=== PATIENT | male | born 1980 | race Caucasian/White ===

== ENCOUNTER 2016-08-28 17:07 | Emergency (ER) | payer MEDICARE, OTHER ==
[2016-08-28 17:16] VITALS: TEMP 97.1
[2016-08-28] MEDS ORDERED: IBUPROFEN 800 MG TAB PO STA (17:27)
--- NOTE | 2016-08-28 17:49 | XR ---
EXAMINATION TYPE: XR finger LT DATE OF EXAM: 08/28/2016 5:42 PM COMPARISON: NONE HISTORY: Laceration TECHNIQUE: 3 views FINDINGS: I see no fracture nor dislocation. Joint spaces are normal. There is no sign of a foreign b clark. IMPRESSION: Negative left index finger exam.
--- NOTE | 2016-08-28 17:55 | ED ---
Wound/Laceration HPI - General Chief Complaint: Wound/Laceration Stated Complaint: LACERATION ON LEFT INDEX FINGER WITH CUTTING WHEEL Time Seen by Provider: 08/28/16 17:23 Source: patient, RN notes reviewed Mode of arrival: ambulatory Limitations: no limitations - History of Present Illness Initial Comments: 36-year-old male presents to the ER with laceration to his left index finger. States he was using a valve grinder tool when his finger slipped and cut at the knuckle. He has had his tetanus within the last 1-2 years. He states that he did not take anything for pain prior to coming in does state that he is in moderate to severe pain. He states he has no other constitutional symptoms including headache, dizziness, nausea, vomiting, abdominal pain, chest pain or shortness of breath. He states that he did control the bleeding with pressure on his way here. - Related Data Previous Rx's Medication Instructions Recorded Acetaminophen with Codeine 1 each PO Q4H #16 tab 10/29/14 [Tylenol w/codeine #3] Doxycycline Hyclate 100 mg PO BID #14 tab 10/29/14 Cephalexin [Keflex] 500 mg PO Q12HR #14 cap 08/28/16 Allergies Allergy/AdvReac Type Severity Reaction Status Date / Time No Known Allergies Allergy Verified 10/28/14 23:21 Review of Systems ROS Statement: Those systems with pertinent positive or pertinent negative responses have been documented in the HPI. ROS Other: All systems not noted in ROS Statement are negative. Past Medical History Past Medical History: Asthma History of Any Multi-Drug Resistant Organisms: None Reported Past Surgical History: Back Surgery, Orthopedic Surgery Additional Past Surgical History / Comment(s): vasectomy,jaw surgery Past Psychological History: No Psychological Hx Reported Smoking Status: Current every day smoker Past Alcohol Use History: None Reported Past Drug Use History: Marijuana General Exam Limitations: no limitations General appearance: alert, in no apparent distress Head exam: Present: atraumatic, normocephalic Eye exam: Present: normal appearance, PERRL, EOMI Pupils: Present: normal accommodation Respiratory exam: Present: normal lung sounds bilaterally Cardiovascular Exam: Present: regular rate, normal rhythm Extremities exam: Present: full ROM, tenderness (Left index finger), normal capillary refill, joint swelling (Left index finger full range of motion full- strength on flexion and extension neurovascular status intact.), other ( Laceration to the left index finger on the PIP joint. The subcutaneous layer but not through the muscular layer of the muscle is visualized there is no tendon or joint space involvement. I do not visualize any foreign bodies.) Neurological exam: Present: alert, oriented X3, CN II-XII intact, normal gait Psychiatric exam: Present: normal affect, normal mood Skin exam: Present: other (2 cm flap laceration with clean edges) Course Vital Signs 08/28/16 08/28/16 17:14 18:37 Temperature 97.1 F L Pulse Rate 101 H 83 Respiratory 18 16 Rate Blood Pressure 163/93 128/76 O2 Sat by Pulse 100 96 Oximetry Procedures - Laceration Laceration #1 Consent Obtained: verbal consent Time Out Performed: Yes Indication: laceration Site: other (Left index finger) Size (cm): 2 Description: flap Depth: simple, single layer Anesthetic Used: lidocaine 1% Anesthesia Technique: local infiltration Pre-repair: wound explored, irrigated extensively, deep structures intact Type of Sutures: nylon Size of Sutures: 5-0 Number of Sutures: 4 Technique: simple, interrupted Patient Tolerated Procedure: well Medical Decision Making - Medical Decision Making 36-year-old male presented to the ER after sustaining a laceration to his left index finger on the PIP joint. Upon exploration there was no tendon or joint space involvement however due to the to will use recommended an x-ray to make sure that there was no foreign body visualized on x-ray. X-ray was reviewed and no foreign bodies were appreciated and there also no fractures noted. The wound was then anesthetized and irrigated extensively prior to suturing. Patient tolerated the procedure well. He is to come back to the ER in 7 days for suture removal. Due to smoking history will recommend prophylactic antibiotics and Keflex was given to patient. Smoking cessation was also discussed in detail with patient. Patient to return to the ER if any worsening symptoms or concerns to follow-up with primary care physician this week. - Radiology Data Radiology results: report reviewed (No evidence of foreign body fracture dislocation.), image reviewed (No evidence of foreign body dislocation or fracture.) Disposition Clinical Impression: Laceration of left index finger Disposition: HOME SELF-CARE Condition: Good Instructions: Laceration (ED) Additional Instructions: Return to the ER in 7 days for suture removal. Follow-up with primary physician this week. To return to the ER if any worsening symptoms or concerns. Prescriptions: Cephalexin [Keflex] 500 mg PO Q12HR #14 cap Referrals: Khai Galarza MD [STAFF PHYSICIAN] - 1-2 days Time of Disposition: 18:17
[2016-08-28 18:38] VITALS: BP 128/76; PULSE 83; RESP 16
== END 2016-08-28 18:38 | disposition home or self-care (01) ==
LOC: EC 17:07
DX: S61.211A Laceration without foreign body of left index finger without damage to nail, initial encounter (principal); W22.8XXA Striking against or struck by other objects, initial encounter; F17.200 Nicotine dependence, unspecified, uncomplicated
CPT/HCPCS: 12001; 99283

== ENCOUNTER 2017-07-18 20:09 | Observation (INO) | payer MEDICARE, OTHER ==
[2017-07-18] MEDS ORDERED: SODIUM CHLORIDE 0.9% 500 ML IV STA (20:29)
--- NOTE | 2017-07-18 20:29 | ED ---
General Adult HPI - General Chief complaint: Chest Pain Stated complaint: chest pain Time Seen by Provider: 07/18/17 20:22 Source: patient, RN notes reviewed, old records reviewed Mode of arrival: wheelchair Limitations: no limitations - History of Present Illness Initial comments: This is a 29-year-old male to the ER for evaluation. This patient presents ER for evaluation of chest pain. Severe chest pain substernal anterior chest pain. Patient significant discomfort. Patient states he has history of asthma no heart risk factors. No cardiac risk factors no travel history no sick contacts. Sudden onset of pain prior to arrival - Related Data Home Medications Medication Instructions Recorded Confirmed Albuterol Sulfate [Proair Hfa] 2 puff INHALATION RT-Q6H PRN 07/18/17 07/18/17 Allergies Allergy/AdvReac Type Severity Reaction Status Date / Time No Known Allergies Allergy Verified 07/18/17 21:05 Review of Systems ROS Statement: Those systems with pertinent positive or pertinent negative responses have been documented in the HPI. ROS Other: All systems not noted in ROS Statement are negative. Past Medical History Past Medical History: Asthma History of Any Multi-Drug Resistant Organisms: None Reported Past Surgical History: Back Surgery, Orthopedic Surgery Additional Past Surgical History / Comment(s): vasectomy,jaw surgery Past Psychological History: No Psychological Hx Reported Smoking Status: Current every day smoker Past Alcohol Use History: None Reported Past Drug Use History: Marijuana General Exam Limitations: no limitations General appearance: alert, in no apparent distress Head exam: Present: atraumatic, normocephalic, normal inspection Eye exam: Present: normal appearance, PERRL, EOMI. Absent: scleral icterus, conjunctival injection, periorbital swelling ENT exam: Present: normal exam, mucous membranes moist Neck exam: Present: normal inspection. Absent: tenderness, meningismus, lymphadenopathy Respiratory exam: Present: normal lung sounds bilaterally. Absent: respiratory distress, wheezes, rales, rhonchi, stridor Cardiovascular Exam: Present: regular rate, normal rhythm, normal heart sounds. Absent: systolic murmur, diastolic murmur, rubs, gallop, clicks GI/Abdominal exam: Present: soft, normal bowel sounds. Absent: distended, tenderness, guarding, rebound, rigid Extremities exam: Present: normal inspection, full ROM, normal capillary refill. Absent: tenderness, pedal edema, joint swelling, calf tenderness Back exam: Present: normal inspection Neurological exam: Present: alert, oriented X3, CN II-XII intact Psychiatric exam: Present: normal affect, normal mood Skin exam: Present: warm, dry, intact, normal color. Absent: rash Course Vital Signs 07/18/17 07/18/17 20:11 22:19 Temperature 98.0 F Pulse Rate 94 70 Respiratory 20 18 Rate Blood Pressure 142/79 119/67 O2 Sat by Pulse 95 98 Oximetry - Reevaluation(s) Reevaluation #1: 07/18/17 22:26 Patient has chest pain improvement and pain control currently EKG Findings - EKG Comments: EKG Findings:: EKG shows normal sinus rhythm rate 82, WA 136, QRS 84, QTC 425 Medical Decision Making - Medical Decision Making 37 male the ER for evaluation of chest pain. Severe substernal anterior chest pain. Patient has history of asthma. Patient be admitted for cardiac observation - Lab Data Result diagrams: 07/18/17 20:25 07/18/17 20:25 Lab Results 07/18/17 07/18/17 07/18/17 Range/Units 20:25 20:25 20:25 WBC 8.7 (3.8-10.6) k/uL RBC 6.01 H (4.30-5.90) m/uL Hgb 16.1 (13.0-17.5) gm/dL Hct 47.6 (39.0-53.0) % MCV 79.2 L (80.0-100.0) fL MCH 26.8 (25.0-35.0) pg MCHC 33.8 (31.0-37.0) g/dL RDW 12.5 (11.5-15.5) % Plt Count 352 (150-450) k/uL Neutrophils % 59 % Lymphocytes % 31 % Monocytes % 6 % Eosinophils % 2 % Basophils % 0 % Neutrophils # 5.1 (1.3-7.7) k/uL Lymphocytes # 2.7 (1.0-4.8) k/uL Monocytes # 0.5 (0-1.0) k/uL Eosinophils # 0.2 (0-0.7) k/uL Basophils # 0.0 (0-0.2) k/uL PT (9.0-12.0) sec INR (<1.2) APTT (22.0-30.0) sec D-Dimer (<0.60) mg/L FEU Sodium 140 (137-145) mmol/L Potassium 4.5 (3.5-5.1) mmol/L Chloride 102 (98-107) mmol/L Carbon Dioxide 26 (22-30) mmol/L Anion Gap 12 mmol/L BUN 13 (9-20) mg/dL Creatinine 0.82 (0.66-1.25) mg/dL Est GFR (CKD-EPI)AfAm >90 (>60 ml/min/1.73 sqM) Est GFR (CKD-EPI)NonAf >90 (>60 ml/min/1.73 sqM) Glucose 93 (74-99) mg/dL Calcium 9.5 (8.4-10.2) mg/dL Magnesium 1.9 (1.6-2.3) mg/dL Total Bilirubin 0.4 (0.2-1.3) mg/dL AST 24 (17-59) U/L ALT 30 (21-72) U/L Alkaline Phosphatase 102 (38-126) U/L Total Creatine Kinase 83 (55-170) U/L CK-MB (CK-2) 0.6 (0.0-2.4) ng/mL CK-MB (CK-2) Rel Index 0.7 Troponin I <0.012 (0.000-0.034) ng/mL Total Protein 7.3 (6.3-8.2) g/dL Albumin 4.1 (3.5-5.0) g/dL Lipase 54 (23-300) U/L 07/18/17 Range/Units 20:25 WBC (3.8-10.6) k/uL RBC (4.30-5.90) m/uL Hgb (13.0-17.5) gm/dL Hct (39.0-53.0) % MCV (80.0-100.0) fL MCH (25.0-35.0) pg MCHC (31.0-37.0) g/dL RDW (11.5-15.5) % Plt Count (150-450) k/uL Neutrophils % % Lymphocytes % % Monocytes % % Eosinophils % % Basophils % % Neutrophils # (1.3-7.7) k/uL Lymphocytes # (1.0-4.8) k/uL Monocytes # (0-1.0) k/uL Eosinophils # (0-0.7) k/uL Basophils # (0-0.2) k/uL PT 10.7 (9.0-12.0) sec INR 1.1 (<1.2) APTT 25.2 (22.0-30.0) sec D-Dimer 0.25 (<0.60) mg/L FEU Sodium (137-145) mmol/L Potassium (3.5-5.1) mmol/L Chloride (98-107) mmol/L Carbon Dioxide (22-30) mmol/L Anion Gap mmol/L BUN (9-20) mg/dL Creatinine (0.66-1.25) mg/dL Est GFR (CKD-EPI)AfAm (>60 ml/min/1.73 sqM) Est GFR (CKD-EPI)NonAf (>60 ml/min/1.73 sqM) Glucose (74-99) mg/dL Calcium (8.4-10.2) mg/dL Magnesium (1.6-2.3) mg/dL Total Bilirubin (0.2-1.3) mg/dL AST (17-59) U/L ALT (21-72) U/L Alkaline Phosphatase (38-126) U/L Total Creatine Kinase (55-170) U/L CK-MB (CK-2) (0.0-2.4) ng/mL CK-MB (CK-2) Rel Index Troponin I (0.000-0.034) ng/mL Total Protein (6.3-8.2) g/dL Albumin (3.5-5.0) g/dL Lipase (23-300) U/L - Radiology Data Radiology results: report reviewed (Chest x-ray negative CTA chest negative), image reviewed Critical Care Time Critical Care Time: Yes Total Critical Care Time: 31 Disposition Clinical Impression: Atypical chest pain, Chest pain Disposition: ADMITTED IP TO THIS [facility] Condition: Undetermined Instructions: Chest Pain (ED) Referrals: None,Stated [Primary Care Provider] - 1-2 days
[2017-07-18] MEDS ORDERED: RX INFO: IV CONTRAST WAS GIVEN 1 EACH MISC MISCELLANE PRN (20:34)
[2017-07-18 20:38] LABS: Basophils % (A) 0 %; Eosinophils # (A) 0.2 k/uL (0-0.7); Eosinophils % (A) 2 %; HCT 47.6 % (39.0-53.0); HGB 16.1 gm/dL (13.0-17.5); Lymphocytes # (A) 2.7 k/uL (1.0-4.8); Lymphocytes % (A) 31 %; MCH 26.8 pg (25.0-35.0); MCHC 33.8 g/dL (31.0-37.0); MCV 79.2 fL (80.0-100.0); Mean Platelet Volume 7.4; Monocytes # (A) 0.5 k/uL (0-1.0); Monocytes % (A) 6 %; Neutrophils # (A) 5.1 k/uL (1.3-7.7); Neutrophils % (A) 59 %; Platelet Count 352 k/uL (150-450); RBC 6.01 m/uL (4.30-5.90); RDW 12.5 % (11.5-15.5); WBC 8.7 k/uL (3.8-10.6)
--- NOTE | 2017-07-18 20:47 | XR ---
EXAMINATION TYPE: XR chest 2V DATE OF EXAM: 07/18/2017 COMPARISON: NONE HISTORY: Diffuse nonfocal chest pain. TECHNIQUE: Frontal and lateral views of the chest are obtained. FINDINGS: There is no focal air space opacity, pleural effusion, or pneumothorax seen. The cardiac silhouette size is within normal limits. The osseous structures are intact. IMPRESSION: No acute cardiopulmonary process.
[2017-07-18 20:48] LABS: ALT 30 U/L (21-72); AST 24 U/L (17-59); Albumin 4.1 g/dL (3.5-5.0); Alkaline Phosphatase 102 U/L (38-126); Anion Gap 12 mmol/L; Blood Urea Nitrogen 13 mg/dL (9-20); Calcium 9.5 mg/dL (8.4-10.2); Carbon Dioxide 26 mmol/L (22-30); Chloride 102 mmol/L (98-107); Glucose 93 mg/dL (74-99); Lipase 54 U/L (23-300); Magnesium 1.9 mg/dL (1.6-2.3); Potassium 4.5 mmol/L (3.5-5.1); Sodium 140 mmol/L (137-145); Total Bilirubin 0.4 mg/dL (0.2-1.3); Total Protein 7.3 g/dL (6.3-8.2)
[2017-07-18] MEDS ORDERED: MORPHINE SULFATE 4MG/4ML SYRG IVP STA (20:48)
[2017-07-18 20:51] LABS: Creatine Kinase 83 U/L (55-170)
[2017-07-18 20:52] LABS: D-Dimer 0.25 mg/L FEU (<0.60); INR 1.1 (<1.2); Partial Thromboplastin Time 25.2 sec (22.0-30.0); Prothrombin Time 10.7 sec (9.0-12.0)
[2017-07-18 21:04] LABS: Creatine Kinase MB 0.6 ng/mL (0.0-2.4); Troponin I <0.012 ng/mL (0.000-0.034)
--- NOTE | 2017-07-18 22:20 | CT ---
EXAMINATION TYPE: CT angio thoracic/abd aorta DATE OF EXAM: 07/18/2017 COMPARISON: NONE HISTORY: Chest/upper back pain with SOB CT DLP: 1144.6 mGycm. Automated Exposure Control for Dose Reduction was Utilized. CONTRAST: CT scan of the thorax, abdomen and pelvis is performed with IV Contrast, patient injected with 100 mL of Omnipaque 350. FINDINGS: There are 3-D post processed images. There is subsegmental atelectasis at the posterior lung bases. There is no evidence of a pulmonary ma ss. Thoracic aorta has normal size. There is no sign of thoracic aortic aneurysm or dissection. I see no obvious filling defects in the pulmonary arteries. There is no mediastinal adenopathy. There is n o pericardial effusion. Abdominal aorta has normal size. There is minimal atherosclerotic calcification in the lower abdomina l aorta. There is patency of the iliac arteries. There is bilateral patency of the renal arteries. Th ere is patency of the celiac artery and the superior mesenteric artery. There is no sign of abdominal aortic aneurysm or dissection. Liver and spleen appear normal. Bile ducts are not dilated. Gallbladder and pancreas appear normal. Kidneys have normal size. There is a 2.5 cm cortical cyst on the lateral left kidney. There is no ret roperitoneal adenopathy. Appendix appears normal. I see no intestinal wall thickening. Bladder disten ds smoothly. Thoracic and lumbar spine are intact. There is previous surgery or spina bifida noted in the upper sacral spine. There are probably some sacral cysts. Spinal canal is large in the upper sac rum. CONCLUSION: Minimal atherosclerotic calcification. No evidence of pulmonary embolism. Normal otherwise thoracic a nd abdominal aorta. Left renal cortical cyst. There is some sacral dysraphism.
[2017-07-18] MEDS ORDERED: HEPARIN SODIUM,PORCINE 5,000 UNIT/ML 1 ML VIAL IV PRN (22:23)
[2017-07-18] MEDS ORDERED: HEPARIN SODIUM,PORCINE 5,000 UNIT/ML 1 ML VIAL IV ONE (22:23)
[2017-07-18] MEDS ORDERED: MORPHINE ORAL SOLN 10 MG/5 ML CUP PO PRN (22:23)
[2017-07-18] MEDS ORDERED: ASPIRIN 81 MG PO STA (22:23)
[2017-07-18] MEDS ORDERED: NITROGLYCERIN SL TABS 0.4 MG TAB SUBLINGUAL PRN (22:23)
[2017-07-18] MEDS ORDERED: IPRATROPIUM-ALBUTEROL 3 ML NEB INHALATION STA (22:26)
[2017-07-18] MEDS ORDERED: methylPREDNISolone SOD SUCCI 125 MG/2 ML VIAL IV STA (22:26)
[2017-07-18] MEDS ORDERED: KETOROLAC 30 MG/ML 1 ML VIAL IVP STA (22:26)
[2017-07-18] MEDS ORDERED: HEPARIN SOD,PORK IN 0.45% NACL 25,000 UNIT in 0.45% NACL 1 500ML.BAG IV SCH (22:30)
[2017-07-19] MEDS ORDERED: IPRATROPIUM-ALBUTEROL 3 ML NEB INHALATION PRN (01:46)
[2017-07-19 02:00] VITALS: TEMP 98.1
[2017-07-19 02:02] VITALS: BMI 28.0
[2017-07-19 02:18] VITALS: BP 110/60; PULSE 88; RESP 18
[2017-07-19] MEDS ORDERED: methylPREDNISolone SOD SUCCI 125 MG/2 ML VIAL IV SCH (06:00)
[2017-07-19] MEDS ORDERED: IPRATROPIUM-ALBUTEROL 3 ML NEB INHALATION SCH ×2 (08:00)
[2017-07-19] MEDS ORDERED: ASPIRIN 325 MG TAB PO SCH (09:00)
[2017-07-19] MEDS ORDERED: METOPROLOL TARTRATE 25 MG TAB PO SCH (09:00)
[2017-07-19] MEDS ORDERED: ATORVASTATIN 80 MG TAB PO SCH (09:00)
--- NOTE | 2017-08-01 11:20 | HP ---
HISTORY AND PHYSICAL COMBINATION HISTORY AND PHYSICAL AND DISCHARGE SUMMARY CHIEF COMPLAINT: Chest pain. HISTORY OF PRESENT ILLNESS: This 37-year-old gentleman admitted with chest pain. Evaluation including CAT scan was done in the ER. Patient admitted, but however the patient left the hospital AGAINST MEDICAL ADVICE without being seen. Please refer to the ER notes and staff notes and multiple others information for further details. Prognosis remains guarded. FINAL DIAGNOSIS: Chest pain, etiology undetermined. MMODL / IJN: [id number] /
== END 2017-07-19 03:10 | disposition left against medical advice (07) ==
LOC: EC 20:09 → 3OBS 22:23
PROVIDERS: ADMIT Hospitalist; ATTEND Hospitalist
DX: R07.89 Other chest pain (principal); J45.909 Unspecified asthma, uncomplicated; F17.200 Nicotine dependence, unspecified, uncomplicated
CPT/HCPCS: 96375 ×4; 96366 ×3; 96361 ×2; 96365 ×2; 99291 ×2; 96376; 36415; 94640; 93005; 85379; 80053; 82550; 82553; 83690; 83735; 84484; 85025; 85610; 85730; 71046; 75635; 71275; G0378 ×2; J1644 ×2; J2930; Q9967; J1885; J2270

== ENCOUNTER 2017-11-09 10:09 | Emergency (ER) | payer MEDICARE, OTHER ==
[2017-11-09] MEDS ORDERED: PANTOPRAZOLE 40 MG/10 ML VIAL IVP STA (10:38)
[2017-11-09] MEDS ORDERED: MORPHINE SULFATE 2 MG/ML SYRINGE IVP STA (10:38)
[2017-11-09] MEDS ORDERED: SODIUM CHLORIDE 0.9% 1,000 ML IV STA (10:38)
[2017-11-09] MEDS ORDERED: ONDANSETRON 4 MG/2 ML VIAL IVP STA (10:38)
--- NOTE | 2017-11-09 10:54 | ED ---
Abdominal Pain HPI - General Chief Complaint: Abdominal Pain Stated Complaint: Abdominal Pain Time Seen by Provider: 11/09/17 10:23 Source: patient, RN notes reviewed, old records reviewed Mode of arrival: ambulatory Limitations: no limitations - History of Present Illness Initial Comments: Patient is a 29-year-old male presents department for the third time in the past few weeks due to Chronic strike and left-sided abdominal pain. Patient reports [facility] the past few weeks. He was there on 11-05, which he had CT and ultrasound. All that was reviewed and negative for any significant changes. His lab work at that time was unremarkable. Patient reports that he is initial visit he was told that he has gallbladder issues questionable gallbladder sludge. He is supposed to follow-up with a surgeon and diagnosed gastritis. He has not been taking any of the medication as prescribed by them. Patient states pain is a 10 out of 10 raise towards his back. Patient has had no vomiting or any other abnormal symptoms. He did state that he feels like he may be constipated. At this time Patient is a arriving to emergency department drinking coffee. - Related Data Previous Rx's Medication Instructions Recorded Famotidine [Pepcid] 20 mg PO BID #20 tablet 11/09/17 Sucralfate [Carafate] 1 gm PO ACHS #20 tablet 11/09/17 Allergies Allergy/AdvReac Type Severity Reaction Status Date / Time No Known Allergies Allergy Verified 11/09/17 10:30 Review of Systems ROS Statement: Those systems with pertinent positive or pertinent negative responses have been documented in the HPI. ROS Other: All systems not noted in ROS Statement are negative. Past Medical History Past Medical History: Asthma History of Any Multi-Drug Resistant Organisms: None Reported Past Surgical History: Back Surgery, Orthopedic Surgery Additional Past Surgical History / Comment(s): vasectomy,jaw surgery Past Anesthesia/Blood Transfusion Reactions: No Reported Reaction Past Psychological History: No Psychological Hx Reported Smoking Status: Current every day smoker Past Alcohol Use History: None Reported Past Drug Use History: Marijuana - Past Family History Mother History Unknown: Yes Father History Unknown: Yes General Exam - General Exam Comments Initial Comments: This is a 37-year-old male. Alert and oriented. No significant distress. Limitations: no limitations General appearance: alert, in no apparent distress Head exam: Present: atraumatic, normocephalic, normal inspection Eye exam: Present: normal appearance, PERRL, EOMI. Absent: scleral icterus, conjunctival injection, periorbital swelling ENT exam: Present: normal exam, mucous membranes moist Neck exam: Present: normal inspection. Absent: tenderness, meningismus, lymphadenopathy Respiratory exam: Present: normal lung sounds bilaterally. Absent: respiratory distress, wheezes, rales, rhonchi, stridor Cardiovascular Exam: Present: regular rate, normal rhythm, normal heart sounds. Absent: systolic murmur, diastolic murmur, rubs, gallop, clicks GI/Abdominal exam: Present: soft, tenderness (Left upper quadrant epigastric tenderness.), normal bowel sounds. Absent: distended, guarding, rebound, rigid Extremities exam: Present: normal inspection, full ROM, normal capillary refill. Absent: tenderness, pedal edema, joint swelling, calf tenderness Back exam: Present: normal inspection Neurological exam: Present: alert, oriented X3, CN II-XII intact Psychiatric exam: Present: normal affect, normal mood Course Vital Signs 11/09/17 11/09/17 10:10 12:27 Temperature 97.9 F 98.4 F Pulse Rate 88 85 Respiratory 20 18 Rate Blood Pressure 130/94 112/77 O2 Sat by Pulse 100 99 Oximetry Medical Decision Making - Medical Decision Making This is a 37-year-old male present emergency department with a few weeks of epigastric and left-sided abdominal pain. At this time patient's labwork was reviewed and unremarkable. Patient is quite concerned of having a gallbladder stone or abnormality's with his gallbladder. He was been seen at [facility] twice within the past few weeks. He was seen on 722 and had a computed tomography scan. At that time his CAT scan was reviewed and unremarkable. Today his labs show no skin changes. Patient did arrive to emergency department drinking coffee. I believe his symptoms are more likely related to gastritis. I discussed that he was discharged in the first 2 year visits with Pepcid and he should be taking those medicines as prescribed. Patient CT evident pelvis was reviewed and shows mild hepatomegaly no acute inflammatory abnormalities or changes. He does have a small left renal cyst. At this time and discussed with a normal ultrasound again today as well as his previous visits and lab work. Patient likely has gastritis. Discussed most likely exacerbated from drinking coffee and poor diet with acidic foods. I discussed PCP follow-up as well as GI and surgical follow-up. I advised him to continue to take Pepcid daily. Patient agrees treatment plan will comply. We' ll also add Carafate as well. - Lab Data Result diagrams: 11/09/17 11:10 11/09/17 11:10 Lab Results 11/09/17 11/09/17 11/09/17 Range/Units 11:10 11:10 11:10 WBC 10.8 H (3.8-10.6) k/uL RBC 5.72 (4.30-5.90) m/uL Hgb 15.1 (13.0-17.5) gm/dL Hct 46.5 (39.0-53.0) % MCV 81.1 (80.0-100.0) fL MCH 26.4 (25.0-35.0) pg MCHC 32.5 (31.0-37.0) g/dL RDW 12.6 (11.5-15.5) % Plt Count 323 (150-450) k/uL Neutrophils % 67 % Lymphocytes % 24 % Monocytes % 5 % Eosinophils % 2 % Basophils % 0 % Neutrophils # 7.3 (1.3-7.7) k/uL Lymphocytes # 2.6 (1.0-4.8) k/uL Monocytes # 0.5 (0-1.0) k/uL Eosinophils # 0.2 (0-0.7) k/uL Basophils # 0.0 (0-0.2) k/uL PT 10.0 (9.0-12.0) sec INR 1.0 (<1.2) APTT 23.3 (22.0-30.0) sec Sodium 138 (137-145) mmol/L Potassium 4.4 (3.5-5.1) mmol/L Chloride 103 (98-107) mmol/L Carbon Dioxide 26 (22-30) mmol/L Anion Gap 9 mmol/L BUN 11 (9-20) mg/dL Creatinine 0.80 (0.66-1.25) mg/dL Est GFR (CKD-EPI)AfAm >90 (>60 ml/min/1.73 sqM) Est GFR (CKD-EPI)NonAf >90 (>60 ml/min/1.73 sqM) Glucose 101 H (74-99) mg/dL Calcium 9.8 (8.4-10.2) mg/dL Total Bilirubin 0.4 (0.2-1.3) mg/dL AST 21 (17-59) U/L ALT 33 (21-72) U/L Alkaline Phosphatase 81 (38-126) U/L Total Protein 6.9 (6.3-8.2) g/dL Albumin 4.1 (3.5-5.0) g/dL Amylase 60 (30-110) U/L Lipase 28 (23-300) U/L Urine Color Urine Appearance (Clear) Urine pH (5.0-8.0) Ur Specific [place] (1.001-1.035) Urine Protein (Negative) Urine Glucose (UA) (Negative) Urine Ketones (Negative) Urine Blood (Negative) Urine Nitrite (Negative) Urine Bilirubin (Negative) Urine Urobilinogen (<2.0) mg/dL Ur Leukocyte Esterase (Negative) 11/09/17 Range/Units 12:21 WBC (3.8-10.6) k/uL RBC (4.30-5.90) m/uL Hgb (13.0-17.5) gm/dL Hct (39.0-53.0) % MCV (80.0-100.0) fL MCH (25.0-35.0) pg MCHC (31.0-37.0) g/dL RDW (11.5-15.5) % Plt Count (150-450) k/uL Neutrophils % % Lymphocytes % % Monocytes % % Eosinophils % % Basophils % % Neutrophils # (1.3-7.7) k/uL Lymphocytes # (1.0-4.8) k/uL Monocytes # (0-1.0) k/uL Eosinophils # (0-0.7) k/uL Basophils # (0-0.2) k/uL PT (9.0-12.0) sec INR (<1.2) APTT (22.0-30.0) sec Sodium (137-145) mmol/L Potassium (3.5-5.1) mmol/L Chloride (98-107) mmol/L Carbon Dioxide (22-30) mmol/L Anion Gap mmol/L BUN (9-20) mg/dL Creatinine (0.66-1.25) mg/dL Est GFR (CKD-EPI)AfAm (>60 ml/min/1.73 sqM) Est GFR (CKD-EPI)NonAf (>60 ml/min/1.73 sqM) Glucose (74-99) mg/dL Calcium (8.4-10.2) mg/dL Total Bilirubin (0.2-1.3) mg/dL AST (17-59) U/L ALT (21-72) U/L Alkaline Phosphatase (38-126) U/L Total Protein (6.3-8.2) g/dL Albumin (3.5-5.0) g/dL Amylase (30-110) U/L Lipase (23-300) U/L Urine Color Yellow Urine Appearance Clear (Clear) Urine pH 6.5 (5.0-8.0) Ur Specific [place] 1.015 (1.001-1.035) Urine Protein Negative (Negative) Urine Glucose (UA) Negative (Negative) Urine Ketones Negative (Negative) Urine Blood Negative (Negative) Urine Nitrite Negative (Negative) Urine Bilirubin Negative (Negative) Urine Urobilinogen <2.0 (<2.0) mg/dL Ur Leukocyte Esterase Negative (Negative) - Radiology Data Radiology results: report reviewed Ultrasound is negative for any acute process. Disposition Clinical Impression: Gastritis Disposition: HOME SELF-CARE Condition: Good Instructions: Diet for Stomach Ulcers and Gastritis (ED), Gastritis (ED) Additional Instructions: Patient is advised to have a real strict diet, avoiding coffee and acidic foods. You need to take the medication as prescribed. Take the Carafate with meals. Patient should return to the emergency department if any alarming signs or symptoms occur. Prescriptions: Famotidine [Pepcid] 20 mg PO BID #20 tablet Sucralfate [Carafate] 1 gm PO ACHS #20 tablet Is patient prescribed a controlled substance at d/c from ED?: No Referrals: None,Stated [Primary Care Provider] - 1-2 days Lyndsey Putnam MD [STAFF PHYSICIAN] - 1-2 days Time of Disposition: 12:53
--- NOTE | 2017-11-09 11:27 | XR ---
EXAMINATION TYPE: XR KUB DATE OF EXAM: 11/09/2017 10:58 AM CLINICAL HISTORY: Central abdominal pain for one week TECHNIQUE: Single upright KUB image of the abdomen is obtained. COMPARISON: None. FINDINGS: Few scattered air-fluid levels are seen within nondilated bowel. Scattered gas is seen in n ondilated small bowel loops. Gas and fecal material is seen in nondilated colon. There is no gross ev idence of visceromegaly, pneumoperitoneum, or abnormal calcification appreciated. The lung bases are clear and the osseous structures are intact. IMPRESSION: Nonobstructive bowel gas pattern. Few scattered, primarily right lower quadrant, air-flui d levels are noted within nondilated bowel. Correlate with point tenderness.
[2017-11-09 11:34] LABS: ALT 33 U/L (21-72); AST 21 U/L (17-59); Albumin 4.1 g/dL (3.5-5.0); Alkaline Phosphatase 81 U/L (38-126); Amylase 60 U/L (30-110); Anion Gap 9 mmol/L; Blood Urea Nitrogen 11 mg/dL (9-20); Calcium 9.8 mg/dL (8.4-10.2); Carbon Dioxide 26 mmol/L (22-30); Chloride 103 mmol/L (98-107); Glucose 101 mg/dL (74-99); Lipase 28 U/L (23-300); Potassium 4.4 mmol/L (3.5-5.1); Sodium 138 mmol/L (137-145); Total Bilirubin 0.4 mg/dL (0.2-1.3); Total Protein 6.9 g/dL (6.3-8.2)
[2017-11-09 11:35] LABS: Basophils % (A) 0 %; Eosinophils # (A) 0.2 k/uL (0-0.7); Eosinophils % (A) 2 %; HCT 46.5 % (39.0-53.0); HGB 15.1 gm/dL (13.0-17.5); Lymphocytes # (A) 2.6 k/uL (1.0-4.8); Lymphocytes % (A) 24 %; MCH 26.4 pg (25.0-35.0); MCHC 32.5 g/dL (31.0-37.0); MCV 81.1 fL (80.0-100.0); Mean Platelet Volume 6.6; Monocytes # (A) 0.5 k/uL (0-1.0); Monocytes % (A) 5 %; Neutrophils # (A) 7.3 k/uL (1.3-7.7); Neutrophils % (A) 67 %; Platelet Count 323 k/uL (150-450); RBC 5.72 m/uL (4.30-5.90); RDW 12.6 % (11.5-15.5); WBC 10.8 k/uL (3.8-10.6)
[2017-11-09 11:38] LABS: Partial Thromboplastin Time 23.3 sec (22.0-30.0)
[2017-11-09 12:28] VITALS: BP 112/77; PULSE 85; RESP 18; TEMP 98.4
[2017-11-09 12:28] LABS: Appearance,Urine Clear (Clear); Bilirubin,Urine Negative (Negative); Blood,Urine Negative (Negative); Color,Urine Yellow; Glucose,Urine (UA) Negative (Negative); Ketones,Urine Negative (Negative); Leukocyte Esterase,Urine Negative (Negative); Nitrite,Urine Negative (Negative); PH, Urine 6.5 (5.0-8.0); Protein,Urine Negative (Negative); Specific Gravity,Urine 1.015 (1.001-1.035); Urobilinogen,Urine <2.0 mg/dL (<2.0)
--- NOTE | 2017-11-09 12:43 | US ---
EXAMINATION TYPE: US gallbladder DATE OF EXAM: 11/09/2017 COMPARISON: CT 2018 CLINICAL HISTORY: Pain. Abdomen pain x 3 weeks EXAM MEASUREMENTS: Liver Length: 18.5 cm Gallbladder Wall: 0.2 cm CBD: 0.4 cm Right Kidney: 9.6 x 5.4 x 5.7 cm Pancreas: visualized portions wnl, head and tail limited by overlying midline bowel gas Liver: enlarged Gallbladder: wnl Evidence for sonographic Funes's sign: yes CBD: visualized portions wnl, limited by overlying bowel gas Right Kidney: visualized portions wnl, inferior pole limited by overlying bowel gas IMPRESSION: No Distinct abnormality seen.
== END 2017-11-09 13:07 | disposition home or self-care (01) ==
LOC: EC 10:09
DX: K29.70 Gastritis, unspecified, without bleeding (principal); N28.1 Cyst of kidney, acquired; R16.0 Hepatomegaly, not elsewhere classified; M54.9 Dorsalgia, unspecified; F17.200 Nicotine dependence, unspecified, uncomplicated; Z98.890 Other specified postprocedural states
CPT/HCPCS: 36415; 80053; 82150; 83690; 85025; 85610; 85730; 81003; 74018; 76705; 99285; 96374; 96375 ×2; 96361 ×2; J2405; J2270; C9113

== ENCOUNTER 2018-01-20 16:09 | Emergency (ER) | payer OTHER ==
[2018-01-20] MEDS ORDERED: ONDANSETRON 4 MG/2 ML VIAL IVP STA (16:49)
[2018-01-20] MEDS ORDERED: SODIUM CHLORIDE 0.9% 1,000 ML IV STA (16:49)
[2018-01-20] MEDS ORDERED: MAG HYDROX/AL HYDROX/SIMETH 30 ML, HYOSCYAMINE ELIXIR 10 ML, CIMETIDINE HCL 300 MG, LID... PO STA ×4 (16:50)
--- NOTE | 2018-01-20 17:26 | ED ---
General Adult HPI - General Chief complaint: Abdominal Pain Stated complaint: Rib/ abd pain Time Seen by Provider: 01/20/18 16:30 Source: patient, RN notes reviewed, old records reviewed Mode of arrival: ambulatory Limitations: no limitations - History of Present Illness Initial comments: Patient's a 37-year-old male presents emergency room today with a chief complaint of abdominal pain. He does admit that he's been having episodes of this abdominal pain for the last several months multiple emergency room visits. He states been here and also [facility]. He states he's had ultrasounds and CAT scans obtained. He states no one can tell was going on. He states that he was told that he did need to follow-up for a scope but he has not seen a GI doctor. Patient admits to pain that starts in the epigastric area and radiates down. He states through some radiation around the right side. Patient does admit that it seems to be worse after he eats or drinks. He denies any other complaints or symptoms. Patient denies any recent fever, chills, shortness of breath, chest pain, numbness or tingling, headaches or visual changes, or any other complaints. - Related Data Previous Rx's Medication Instructions Recorded Famotidine [Pepcid] 20 mg PO BID #20 tablet 11/09/17 Sucralfate [Carafate] 1 gm PO ACHS #20 tablet 11/09/17 Omeprazole [PriLOSEC] 20 mg PO BID 14 Days cap 01/20/18 Allergies Allergy/AdvReac Type Severity Reaction Status Date / Time No Known Allergies Allergy Verified 01/20/18 16:21 Review of Systems ROS Statement: Those systems with pertinent positive or pertinent negative responses have been documented in the HPI. ROS Other: All systems not noted in ROS Statement are negative. Past Medical History Past Medical History: Asthma Additional Past Medical History / Comment(s): chronic back pain, DDD History of Any Multi-Drug Resistant Organisms: None Reported Past Surgical History: Back Surgery, Orthopedic Surgery Additional Past Surgical History / Comment(s): vasectomy,jaw surgery Past Anesthesia/Blood Transfusion Reactions: No Reported Reaction Past Psychological History: No Psychological Hx Reported Smoking Status: Current every day smoker Past Alcohol Use History: None Reported Past Drug Use History: Marijuana - Past Family History Mother History Unknown: Yes Father History Unknown: Yes General Exam - General Exam Comments Initial Comments: General: The patient is awake and alert, in no distress, and does not appear acutely ill. Eye: There is normal conjunctiva bilaterally. No signs of icterus. Ears, nose, mouth and throat: There are moist mucous membranes and no oral lesions. Neck: The neck is supple, there is no tenderness or JVD. Cardiovascular: There is a regular rate and rhythm. No murmur, rub or gallop is appreciated. Respiratory: Lungs are clear to auscultation, respirations are non-labored, breath sounds are equal. No wheezes, stridor, rales, or rhonchi. Gastrointestinal: Abdomen soft on palpation. Patient does have tenderness in epigastric. No rebound, guarding or CVA tenderness. Musculoskeletal: Normal ROM, no tenderness. Sensation intact. Strength 5/5. Pulses equal bilaterally 2+. Neurological: A&O x 3. CN II-XII intact, There are no obvious motor or sensory deficits. Coordination appears grossly intact. Speech is normal. Skin: Skin is warm and dry and no rashes or lesions are noted. Psychiatric: Cooperative, appropriate mood & affect, normal judgment. Limitations: no limitations Course Vital Signs 01/20/18 01/20/18 16:17 18:26 Temperature 98.2 F 98.4 F Pulse Rate 95 89 Respiratory 20 16 Rate Blood Pressure 133/87 129/72 O2 Sat by Pulse 99 100 Oximetry Medical Decision Making - Medical Decision Making Patient reexamined at this time so no signs of distress. Recent ultrasound was reviewed and showed no evidence of cholelithiasis. Patient does have tenderness in the epigastric area he's had symptoms on and off now for several months she's had multiple workups and states she's had CAT scans for this. Patient was advised that he should have an upper scope performed. By previous visits. Today a GI cocktail did relieve his symptoms and he states he does feel much better. Patient was on Prilosec in the past but is not been taking it for the past 3 years. He'll be prescribed Prilosec and is advised to follow- up over the next 2 days given a referral to GI. - Lab Data Result diagrams: 01/20/18 17:00 01/20/18 17:00 Lab Results 01/20/18 01/20/18 01/20/18 Range/Units 17:00 17:00 18:38 WBC 7.9 (3.8-10.6) k/uL RBC 5.69 (4.30-5.90) m/uL Hgb 15.7 (13.0-17.5) gm/dL Hct 45.8 (39.0-53.0) % MCV 80.6 (80.0-100.0) fL MCH 27.6 (25.0-35.0) pg MCHC 34.3 (31.0-37.0) g/dL RDW 12.9 (11.5-15.5) % Plt Count 351 (150-450) k/uL Neutrophils % 58 % Lymphocytes % 33 % Monocytes % 5 % Eosinophils % 2 % Basophils % 0 % Neutrophils # 4.6 (1.3-7.7) k/uL Lymphocytes # 2.6 (1.0-4.8) k/uL Monocytes # 0.4 (0-1.0) k/uL Eosinophils # 0.1 (0-0.7) k/uL Basophils # 0.0 (0-0.2) k/uL Sodium 140 (137-145) mmol/L Potassium 4.3 (3.5-5.1) mmol/L Chloride 100 (98-107) mmol/L Carbon Dioxide 29 (22-30) mmol/L Anion Gap 11 mmol/L BUN 11 (9-20) mg/dL Creatinine 0.78 (0.66-1.25) mg/dL Est GFR (CKD-EPI)AfAm >90 (>60 ml/min/1.73 sqM) Est GFR (CKD-EPI)NonAf >90 (>60 ml/min/1.73 sqM) Glucose 99 (74-99) mg/dL Calcium 9.8 (8.4-10.2) mg/dL Total Bilirubin 0.6 (0.2-1.3) mg/dL AST 23 (17-59) U/L ALT 31 (21-72) U/L Alkaline Phosphatase 82 (38-126) U/L Total Protein 7.5 (6.3-8.2) g/dL Albumin 4.2 (3.5-5.0) g/dL Amylase 69 (30-110) U/L Lipase 38 (23-300) U/L Urine Color Yellow Urine Appearance Clear (Clear) Urine pH 6.0 (5.0-8.0) Ur Specific [place] 1.021 (1.001-1.035) Urine Protein Trace H (Negative) Urine Glucose (UA) Negative (Negative) Urine Ketones Negative (Negative) Urine Blood Negative (Negative) Urine Nitrite Negative (Negative) Urine Bilirubin Negative (Negative) Urine Urobilinogen 3.0 (<2.0) mg/dL Ur Leukocyte Esterase Negative (Negative) Disposition Clinical Impression: Epigastric abdominal pain Disposition: HOME SELF-CARE Condition: Good Instructions: Abdominal Pain (ED) Additional Instructions: Please use medication as discussed. Please follow-up with GI/family doctor in the next 2 days of symptoms have not improved. Please return to emergency room if the symptoms increase or worsen or for any other concerns. Prescriptions: Omeprazole [PriLOSEC] 20 mg PO BID 14 Days cap Is patient prescribed a controlled substance at d/c from ED?: No Referrals: None,Stated [Primary Care Provider] - 1-2 days Lyndsey Putnam MD [STAFF PHYSICIAN] - 1-2 days Time of Disposition: 19:08
[2018-01-20 17:42] LABS: Basophils % (A) 0 %; Eosinophils # (A) 0.1 k/uL (0-0.7); Eosinophils % (A) 2 %; HCT 45.8 % (39.0-53.0); HGB 15.7 gm/dL (13.0-17.5); Lymphocytes # (A) 2.6 k/uL (1.0-4.8); Lymphocytes % (A) 33 %; MCH 27.6 pg (25.0-35.0); MCHC 34.3 g/dL (31.0-37.0); MCV 80.6 fL (80.0-100.0); Mean Platelet Volume 6.8; Monocytes # (A) 0.4 k/uL (0-1.0); Monocytes % (A) 5 %; Neutrophils # (A) 4.6 k/uL (1.3-7.7); Neutrophils % (A) 58 %; Platelet Count 351 k/uL (150-450); RBC 5.69 m/uL (4.30-5.90); RDW 12.9 % (11.5-15.5); WBC 7.9 k/uL (3.8-10.6)
[2018-01-20 17:47] LABS: ALT 31 U/L (21-72); AST 23 U/L (17-59); Albumin 4.2 g/dL (3.5-5.0); Alkaline Phosphatase 82 U/L (38-126); Amylase 69 U/L (30-110); Anion Gap 11 mmol/L; Blood Urea Nitrogen 11 mg/dL (9-20); Calcium 9.8 mg/dL (8.4-10.2); Carbon Dioxide 29 mmol/L (22-30); Chloride 100 mmol/L (98-107); Glucose 99 mg/dL (74-99); Lipase 38 U/L (23-300); Potassium 4.3 mmol/L (3.5-5.1); Sodium 140 mmol/L (137-145); Total Bilirubin 0.6 mg/dL (0.2-1.3); Total Protein 7.5 g/dL (6.3-8.2)
--- NOTE | 2018-01-20 17:51 | XR ---
EXAMINATION TYPE: XR KUB DATE OF EXAM: 01/20/2018 5:46 PM CLINICAL HISTORY: Abdominal pain TECHNIQUE: Single upright image of the abdomen is obtained. COMPARISON: 11/09/2017. FINDINGS: Moderate amount retained stool is seen throughout the colon Scattered gas is seen in non-di stended small bowel loops. Gas and fecal material is seen in non-distended colon. There is no viscero megaly, pneumoperitoneum, or abnormal calcification appreciated. The lung bases are clear and the oss eous structures are intact. IMPRESSION: Moderate retained colonic stool burden. Nonobstructive bowel gas pattern. No pneumoperito neum.
[2018-01-20 18:28] VITALS: RESP 16
[2018-01-20 18:51] LABS: Appearance,Urine Clear (Clear); Bilirubin,Urine Negative (Negative); Blood,Urine Negative (Negative); Color,Urine Yellow; Glucose,Urine (UA) Negative (Negative); Ketones,Urine Negative (Negative); Leukocyte Esterase,Urine Negative (Negative); Nitrite,Urine Negative (Negative); Protein,Urine Trace (Negative); Specific Gravity,Urine 1.021 (1.001-1.035)
[2018-01-20 19:20] VITALS: BP 130/78; PULSE 76; TEMP 97
== END 2018-01-20 19:24 | disposition home or self-care (01) ==
LOC: EC 16:09
DX: R10.13 Epigastric pain (principal); F17.200 Nicotine dependence, unspecified, uncomplicated
CPT/HCPCS: 99284; 96374; 36415; 80053; 82150; 83690; 85025; 81003; 74018; J2405

== ENCOUNTER 2018-11-28 18:22 | Emergency (ER) | payer OTHER ==
--- NOTE | 2018-11-28 19:44 | ED ---
Recheck HPI - General Chief Complaint: Recheck/Abnormal Lab/Rx Stated Complaint: Wants testing for MRSA Time Seen by Provider: 11/28/18 19:17 Source: patient Mode of arrival: ambulatory Limitations: no limitations - History of Present Illness Initial Comments: Patient is a 38-year-old male presenting to the emergency department wanting to be checked for MRSA. Patient states his was in the ER a few days ago for a infection in her knee and they just called with results that was positive for MRSA. Patient is afraid that he has some well. Patient has no fever, chills, skin abrasions, abscesses. Patient denies any pain anywhere. Patient has no other complaints at this time. - Related Data Previous Rx's Medication Instructions Recorded Famotidine [Pepcid] 20 mg PO BID #20 tablet 11/09/17 Sucralfate [Carafate] 1 gm PO ACHS #20 tablet 11/09/17 Omeprazole [PriLOSEC] 20 mg PO BID 14 Days cap 01/20/18 Allergies Allergy/AdvReac Type Severity Reaction Status Date / Time No Known Allergies Allergy Verified 11/28/18 18:59 Review of Systems ROS Statement: Those systems with pertinent positive or pertinent negative responses have been documented in the HPI. ROS Other: All systems not noted in ROS Statement are negative. Past Medical History Past Medical History: Asthma Additional Past Medical History / Comment(s): chronic back pain, DDD History of Any Multi-Drug Resistant Organisms: None Reported Past Surgical History: Back Surgery, Orthopedic Surgery Additional Past Surgical History / Comment(s): vasectomy,jaw surgery Past Anesthesia/Blood Transfusion Reactions: No Reported Reaction Past Psychological History: No Psychological Hx Reported Smoking Status: Current every day smoker Past Alcohol Use History: None Reported Past Drug Use History: None Reported - Past Family History Mother History Unknown: Yes Father History Unknown: Yes General Exam - General Exam Comments Initial Comments: GENERAL: Well-appearing, well-nourished and in no acute distress. HEAD: Atraumatic, normocephalic. EYES: Pupils equal round and reactive to light, extraocular movements intact, sclera anicteric, conjunctiva are normal. ENT: TMs normal, nares patent, oropharynx clear without exudates. Moist mucous membranes. NECK: Normal range of motion, supple without lymphadenopathy or JVD. LUNGS: Breath sounds clear to auscultation bilaterally and equal. No wheezes rales or rhonchi. HEART: Regular rate and rhythm without murmurs, rubs or gallops. ABDOMEN: Soft, nontender, normoactive bowel sounds. No guarding, no rebound. No masses appreciated. : Deferred EXTREMITIES: Normal range of motion, no pitting or edema. No clubbing or cyanosis. NEUROLOGICAL: Cranial nerves II through XII grossly intact. Normal speech, normal gait. PSYCH: Normal mood, normal affect. SKIN: Warm, Dry, normal turgor, no rashes or lesions noted. There is no erythema, swelling anywhere. Limitations: no limitations Course Vital Signs 11/28/18 11/28/18 18:59 20:12 Temperature 98.1 F 98.2 F Pulse Rate 81 80 Respiratory 18 17 Rate Blood Pressure 129/76 124/75 O2 Sat by Pulse 98 98 Oximetry Medical Decision Making - Medical Decision Making Patient is a 38-year-old male wanting to be tested for MRSA. His was in [facility] ER a few days ago and tested positive for MRSA from an infection in her knee. Patient states he is worried that he has as well. Patient is afebrile and has no signs of an abscess or skin infection anywhere. It was discussed with patient that we can't test for MRSA without a source. Patient will be discharged home. Return parameters were discussed with the patient he verbalizes understanding. Case discussed with Dr. Lozada. Disposition Clinical Impression: Regular check-up Disposition: HOME SELF-CARE Condition: Stable Instructions (If sedation given, give patient instructions): Normal Exam (ED) Additional Instructions: Please return to the Emergency Department if symptoms worsen or any other concerns. Is patient prescribed a controlled substance at d/c from ED?: No Referrals: None,Stated [Primary Care Provider] - 1-2 days
[2018-11-28 20:14] VITALS: BP 124/75; PULSE 80; RESP 17; TEMP 98.2
== END 2018-11-28 20:13 | disposition home or self-care (01) ==
LOC: EC 18:22
DX: Z11.2 Encounter for screening for other bacterial diseases (principal); F17.200 Nicotine dependence, unspecified, uncomplicated
CPT/HCPCS: 99282

== ENCOUNTER 2019-01-09 12:25 | Emergency (ER) | payer OTHER ==
[2019-01-09 12:50] VITALS: BP 105/67; PULSE 74; RESP 16; TEMP 98
--- NOTE | 2019-01-09 14:40 | XR ---
EXAMINATION TYPE: XR lumbar spine 2 or 3V DATE OF EXAM: 01/09/2019 CLINICAL HISTORY: Low back pain for days. TECHNIQUE: Frontal and lateral images of the lumbar spine are obtained. COMPARISON: Lumbar spine x-ray May 11, 2010 FINDINGS: There are 5 lumbar type vertebral bodies redemonstrated. The lumbar spine redemonstrates satisfactory alignment without evidence of acute fracture or dislocation. Vertebral body heights and disk space heights are within normal limits. Mild multilevel anterior spurring is now seen. Laminecto my defects with spinous process resection at L5 and S1 levels redemonstrated. IMPRESSION: Posterior decompression lumbosacral junction redemonstrated. Alignment is stable. New mil d anterior spurring.
--- NOTE | 2019-01-09 15:05 | ED ---
Back Pain HPI - General Chief Complaint: Back Pain/Injury Stated Complaint: Lower back pain Time Seen by Provider: 01/09/19 13:54 Source: patient Limitations: no limitations - History of Present Illness Initial Comments: Patient is a 38-year-old male presenting to the emergency Department with complaints of low back pain x 2 days. Patient states he recently went back to work after not working for the last 12 years as he was on disability. Patient is on his feet a lot doing lifting and bending activities. Patient admits to 2 prior back surgeries. Patient denies any injuries or trauma to his back in the past month. Patient denies taking many pain medications. Patient denies fever, chills, urinary incontinence, saddle paresthesias, numbness and again to lowers extremities. Patient has no other complaints at this time. Upon arrival to ER, vital signs are stable. - Related Data Previous Rx's Medication Instructions Recorded Famotidine [Pepcid] 20 mg PO BID #20 tablet 11/09/17 Sucralfate [Carafate] 1 gm PO ACHS #20 tablet 11/09/17 Omeprazole [PriLOSEC] 20 mg PO BID 14 Days cap 01/20/18 Cyclobenzaprine [Flexeril] 5 mg PO BID #15 tablet 01/09/19 Allergies Allergy/AdvReac Type Severity Reaction Status Date / Time No Known Allergies Allergy Verified 01/09/19 12:51 Review of Systems ROS Statement: Those systems with pertinent positive or pertinent negative responses have been documented in the HPI. ROS Other: All systems not noted in ROS Statement are negative. Past Medical History Past Medical History: Asthma Additional Past Medical History / Comment(s): chronic back pain, DDD History of Any Multi-Drug Resistant Organisms: None Reported Past Surgical History: Back Surgery, Orthopedic Surgery Additional Past Surgical History / Comment(s): vasectomy,jaw surgery Past Anesthesia/Blood Transfusion Reactions: No Reported Reaction Past Psychological History: No Psychological Hx Reported Smoking Status: Current every day smoker Past Alcohol Use History: None Reported Past Drug Use History: None Reported - Past Family History Mother History Unknown: Yes Father History Unknown: Yes General Exam - General Exam Comments Initial Comments: GENERAL: Well-appearing, well-nourished and in no acute distress. HEAD: Atraumatic, normocephalic. EYES: Pupils equal round and reactive to light, extraocular movements intact, sclera anicteric, conjunctiva are normal. ENT: TMs normal, nares patent, oropharynx clear without exudates. Moist mucous membranes. NECK: Normal range of motion, supple without lymphadenopathy or JVD. LUNGS: Breath sounds clear to auscultation bilaterally and equal. No wheezes rales or rhonchi. HEART: Regular rate and rhythm without murmurs, rubs or gallops. ABDOMEN: Soft, nontender, normoactive bowel sounds. No guarding, no rebound. No masses appreciated. : Deferred EXTREMITIES: Normal range of motion, no pitting or edema. No clubbing or cyanosis. Pain with palpation of the lumbar paraspinals, bilateral. Normal trunk range of motion. Strength is 5 out of 5 lower and upper extremity. NEUROLOGICAL: Cranial nerves II through XII grossly intact. Normal speech, normal gait. PSYCH: Normal mood, normal affect. SKIN: Warm, Dry, normal turgor, no rashes or lesions noted. Limitations: no limitations Course Vital Signs 01/09/19 12:46 Temperature 98.0 F Pulse Rate 74 Respiratory 16 Rate Blood Pressure 105/67 O2 Sat by Pulse 98 Oximetry Medical Decision Making - Medical Decision Making Patient is a 38-year-old male presenting with low back pain times one week. Patient is back to work after not working for the past 12 years. There is no acute injuries or trauma to his back. X-rays reveal no acute fractures dislocations. Patient will be given Flexeril for muscle spasms. Patient is in agreement with this plan and care. Patient is stable for discharge at this time. Return parameters were discussed with the patient and he verbalized understanding. Case discussed with Dr. Paige. Disposition Clinical Impression: Mechanical back pain Disposition: HOME SELF-CARE Condition: Stable Instructions (If sedation given, give patient instructions): Acute Low Back Pain (ED) Additional Instructions: Please return to the Emergency Department if symptoms worsen or any other concerns. Prescriptions: Cyclobenzaprine [Flexeril] 5 mg PO BID #15 tablet Is patient prescribed a controlled substance at d/c from ED?: No Referrals: None,Stated [Primary Care Provider] - 1-2 days
== END 2019-01-09 15:28 | disposition home or self-care (01) ==
LOC: EC 12:25
DX: M54.5 Low back pain (principal); F17.200 Nicotine dependence, unspecified, uncomplicated; Z87.39 Personal history of other diseases of the musculoskeletal system and connective tissue; Z98.890 Other specified postprocedural states
CPT/HCPCS: 72100; 99283

== ENCOUNTER 2019-01-19 22:00 | Emergency (ER) | payer OTHER ==
[2019-01-19 22:14] VITALS: BP 128/75; PULSE 84; RESP 16; TEMP 98
[2019-01-19] MEDS ORDERED: methylPREDNISolone SOD SUCCI 125 MG/2 ML VIAL IM ONE (22:55)
--- NOTE | 2019-01-19 23:14 | ED ---
URI HPI - General Chief Complaint: Upper Respiratory Infection Stated Complaint: Cough Time Seen by Provider: 01/19/19 22:15 Source: patient Mode of arrival: ambulatory Limitations: no limitations - History of Present Illness Initial Comments: 38-year-old male history of asthma presented for chief complaint of cough congestion. Patient states she has had cough and congestion for 10 days. He states he can no longer take the cough. Patient denies any chest pain shortness of breath. Patient states that he has been missing work for the past 2 days be cause of this he symptoms. Patient states he does have some sputum production. Denies chest pain vomiting abdominal pain. She states she has had loose stools. Patient denies any difficulty breathing or swallowing but states he has had a mild sore throat, as well as ear pressure. Patient denies any neck pain and stiffness headache dizziness or photophobia. Remaining review of systems negative. Upon arrival patient appears well signs of acute distress. Afebrile. Patient requesting work note - Related Data Previous Rx's Medication Instructions Recorded Famotidine [Pepcid] 20 mg PO BID #20 tablet 11/09/17 Sucralfate [Carafate] 1 gm PO ACHS #20 tablet 11/09/17 Omeprazole [PriLOSEC] 20 mg PO BID 14 Days cap 01/20/18 Cyclobenzaprine [Flexeril] 5 mg PO BID #15 tablet 01/09/19 Azithromycin [Zithromax Z-pack] 0 mg PO DIRECTED #6 tab 01/19/19 Azithromycin [Zithromax Z-pack] 0 mg PO DIRECTED #6 tab 01/20/19 Allergies Allergy/AdvReac Type Severity Reaction Status Date / Time adhesive Allergy Rash/Hives Verified 01/19/19 22:14 Review of Systems ROS Statement: Those systems with pertinent positive or pertinent negative responses have been documented in the HPI. ROS Other: All systems not noted in ROS Statement are negative. Past Medical History Past Medical History: Asthma Additional Past Medical History / Comment(s): chronic back pain, DDD History of Any Multi-Drug Resistant Organisms: None Reported Past Surgical History: Back Surgery, Orthopedic Surgery Additional Past Surgical History / Comment(s): vasectomy,jaw surgery Past Anesthesia/Blood Transfusion Reactions: No Reported Reaction Past Psychological History: No Psychological Hx Reported Smoking Status: Current every day smoker Past Alcohol Use History: None Reported Past Drug Use History: None Reported - Past Family History Mother History Unknown: Yes Father History Unknown: Yes General Exam - General Exam Comments Initial Comments: General: The patient is awake and alert, in no distress, and does not appear acutely ill. Eye: +3 mm pupils are equal, round and reactive to light, extra-ocular movements are intact. No nystagmus. There is normal conjunctiva bilaterally. No signs of icterus. No photophobia Ears, nose, mouth and throat: There are moist mucous membranes and no oral lesions. Oropharynx was not erythematous there is no tonsillar enlargement exudates or lesions. Uvula midline. Tympanic membranes are mildly erythematous b/l there is no effusions bulging or retraction. No tenderness to palpation of the mastoid. NO EAC lesions. No anterior cervical lymphadenopathy. Rhinorrhea, clear and bilateral nares. No tripoding, no drooling. Neck: The neck is supple, there is no tenderness or JVD. No nuchal rigidity Cardiovascular: There is a regular rate and rhythm. No murmur, rub or gallop is appreciated. Respiratory: Lungs are clear to auscultation, respirations are non-labored, breath sounds are equal. No wheezes, stridor, rales, or rhonchi. No retractions or abdominal breathing. Gastrointestinal: Soft, non-distended, non-tender abdomen without masses or organomegaly noted. There is no rebound or guarding present. Bowel sounds are unremarkable. Musculoskeletal: Normal ROM, no tenderness. Strength 5/5. Sensation intact. Radial pulses equal bilaterally 2+. Neurological: A&O x 3. CN II-XII intact grossly, There are no obvious motor or sensory deficits. Coordination appears grossly intact. Speech appears normal, no muffling. Skin: Skin is warm and dry and no rashes or lesions are noted. No extremity edema Psychiatric: Cooperative Limitations: no limitations Course Vital Signs 01/19/19 22:10 Temperature 98.0 F Pulse Rate 84 Respiratory 16 Rate Blood Pressure 128/75 O2 Sat by Pulse 96 Oximetry Medical Decision Making - Medical Decision Making 38-year-old male presenting for upper respiratory symptoms 10 days. Cough congestion obvious upper respiratory symptoms and physical examination. Lungs clear. Chest x-ray no signs of focal consolidation. Pt afebrile. Patient does have diarrhea in hx. Given hx PE findings at this time I do feel this is most likely viral syndrome, attending agreeable. Patient will be discharged with PCP f/u. Return parameters discussed, patient agreeable. Disposition Clinical Impression: Cough, Congestion of nasal sinus Disposition: HOME SELF-CARE Condition: Good Instructions (If sedation given, give patient instructions): Upper Respiratory Infection (ED) Additional Instructions: Please use medication as discussed. Please follow-up with family doctor in the next 2 days. Please return to emergency room if the symptoms increase or worsen or for any other concerns. Prescriptions: Azithromycin [Zithromax Z-pack] 0 mg PO DIRECTED #6 tab Azithromycin [Zithromax Z-pack] 0 mg PO DIRECTED #6 tab Is patient prescribed a controlled substance at d/c from ED?: No Referrals: None,Stated [Primary Care Provider] - 1-2 days Time of Disposition: 23:47
--- NOTE | 2019-01-19 23:45 | XR ---
EXAMINATION TYPE: XR chest 2V DATE OF EXAM: 01/19/2019 COMPARISON: 07/18/2017 HISTORY: Cough TECHNIQUE: Frontal and lateral views of the chest are obtained. FINDINGS: Heart and mediastinum are normal. Lungs are clear. Diaphragm is normal. Bony thorax appear s normal. IMPRESSION: Normal chest. No change.
== END 2019-01-20 00:07 | disposition home or self-care (01) ==
LOC: EC 22:00
DX: R05 Cough (principal); R09.81 Nasal congestion; H73.893 Other specified disorders of tympanic membrane, bilateral; R19.7 Diarrhea, unspecified; J02.9 Acute pharyngitis, unspecified; F17.200 Nicotine dependence, unspecified, uncomplicated; Z91.048 Other nonmedicinal substance allergy status; Z87.09 Personal history of other diseases of the respiratory system
CPT/HCPCS: 71046; 99283; 96372; J2930

== ENCOUNTER 2019-05-17 00:36 | Emergency (ER) | payer BC ==
[2019-05-17 00:43] VITALS: BP 133/74; PULSE 64; RESP 18; TEMP 98.4
[2019-05-17] MEDS ORDERED: SODIUM CHLORIDE 0.9% 1,000 ML IV STA (01:00)
[2019-05-17] MEDS ORDERED: ONDANSETRON 4 MG/2 ML VIAL IVP STA (01:00)
[2019-05-17] MEDS ORDERED: HYDROmorphone 0.5 MG/0.5 ML SYRINGE IVP STA (01:00)
[2019-05-17] MEDS ORDERED: FAMOTIDINE 20 MG/2 ML VIAL IV STA (01:00)
[2019-05-17] MEDS ORDERED: SODIUM CHLORIDE 0.9% 500 ML 500 ML IV STA (01:00)
--- NOTE | 2019-05-17 01:13 | XR ---
EXAMINATION TYPE: XR KUB DATE OF EXAM: 05/17/2019 COMPARISON: 01/20/2018 HISTORY: Abdominal pain TECHNIQUE: 2 views upright FINDINGS: Bowel gas pattern is normal. There is no sign of intestinal obstruction or pneumoperitoneum . Fecal pattern is normal. There is no evidence of a mass. Lung bases are clear. IMPRESSION: Nonacute abdomen. No change.
--- NOTE | 2019-05-17 01:25 | ED ---
Abdominal Pain HPI - General Chief Complaint: Abdominal Pain Stated Complaint: Upper Abd/Back Pain Time Seen by Provider: 05/17/19 00:46 Source: patient Mode of arrival: ambulatory Limitations: no limitations - History of Present Illness Initial Comments: 39-year-old male patient presents to the emergency department today for evaluation of upper abdominal pain with radiation through to his back. Patient states that he has had this pain for the last 8 days with one day in the middle of being pain-free. Patient states that eating worsens his pain. Denies any nausea or vomiting. Denies any constipation or diarrhea. Patient states he has had this pain mother time in the past. Patient states that he had been evaluated for they're concerned he may have a peptic ulcer however he was never able to follow up with GI specialist and have testing performed. States that he has not been taking his Prilosec due to money issues. He denies any fevers or chills with this. Denies any chest pain or shortness of breath. Denies sweats or dizziness. Denies any hematochezia or melena. Denies alcohol or drug use. Patient denies any recent rash, numbness, tingling, dizziness, weakness, hematuria, dysuria, urinary urgency, urinary frequency, headache, visual changes, or any other complaints. - Related Data Previous Rx's Medication Instructions Recorded Famotidine [Pepcid] 20 mg PO BID #20 tablet 11/09/17 Sucralfate [Carafate] 1 gm PO ACHS #20 tablet 11/09/17 Omeprazole [PriLOSEC] 20 mg PO BID 14 Days cap 01/20/18 Cyclobenzaprine [Flexeril] 5 mg PO BID #15 tablet 01/09/19 Azithromycin [Zithromax Z-pack] 0 mg PO DIRECTED #6 tab 01/19/19 Azithromycin [Zithromax Z-pack] 0 mg PO DIRECTED #6 tab 01/20/19 Omeprazole [PriLOSEC] 20 mg PO AC-BRKFST #30 cap 05/17/19 Allergies Allergy/AdvReac Type Severity Reaction Status Date / Time adhesive Allergy Rash/Hives Verified 05/17/19 00:43 Review of Systems ROS Statement: Those systems with pertinent positive or pertinent negative responses have been documented in the HPI. ROS Other: All systems not noted in ROS Statement are negative. Past Medical History Past Medical History: Asthma Additional Past Medical History / Comment(s): chronic back pain, DDD History of Any Multi-Drug Resistant Organisms: None Reported Past Surgical History: Back Surgery, Orthopedic Surgery Additional Past Surgical History / Comment(s): vasectomy,jaw surgery Past Anesthesia/Blood Transfusion Reactions: No Reported Reaction Past Psychological History: No Psychological Hx Reported Smoking Status: Current every day smoker Past Alcohol Use History: None Reported Past Drug Use History: None Reported - Past Family History Mother History Unknown: Yes Father History Unknown: Yes General Exam Limitations: no limitations General appearance: alert, in no apparent distress, other (Physical well- developed, well-nourished adult male patient in no acute distress. Vital signs upon presentation are temperature 98.4F, pulse 64, respirations 18, blood pressure 133/74, pulse ox 99% on room air.) Eye exam: Present: normal appearance, PERRL, EOMI. Absent: scleral icterus, conjunctival injection, periorbital swelling ENT exam: Present: normal exam, normal oropharynx, mucous membranes moist Respiratory exam: Present: normal lung sounds bilaterally. Absent: respiratory distress, wheezes, rales, rhonchi, stridor Cardiovascular Exam: Present: regular rate, normal rhythm, normal heart sounds. Absent: systolic murmur, diastolic murmur, rubs, gallop, clicks GI/Abdominal exam: Present: soft, tenderness (Midepigastric and right upper quadrant tenderness), normal bowel sounds. Absent: distended, guarding, r ebound, rigid Neurological exam: Present: alert, oriented X3, CN II-XII intact Psychiatric exam: Present: normal affect, normal mood Skin exam: Present: warm, dry, intact, normal color. Absent: rash Course Vital Signs 05/17/19 00:41 Temperature 98.4 F Pulse Rate 64 Respiratory 18 Rate Blood Pressure 133/74 O2 Sat by Pulse 99 Oximetry Medical Decision Making - Medical Decision Making 39-year-old male patient presents to the emergency department today for evaluation of upper abdominal pain with radiation through to the back. Physical examination did reveal some midepigastric tenderness. Labs reviewed and are unremarkable. Patient was given pain medication and Pepcid here in the emergency department. Upon reevaluation does report improvement of symptoms. Vital signs showed no major abnormalities. Patient symptoms are consistent with gastritis possible peptic ulcer disease. We'll start Prilosec. He is instructed to follow up with gastrology neurology for further evaluation. Return parameters were discussed in detail. He verbalizes understanding and agrees with this plan. - Lab Data Result diagrams: 05/17/19 01:50 05/17/19 01:50 Lab Results 05/17/19 05/17/19 05/17/19 Range/Units 01:50 01:50 01:50 WBC 8.5 (3.8-10.6) k/uL RBC 6.08 H (4.30-5.90) m/uL Hgb 16.3 (13.0-17.5) gm/dL Hct 50.3 (39.0-53.0) % MCV 82.7 (80.0-100.0) fL MCH 26.8 (25.0-35.0) pg MCHC 32.4 (31.0-37.0) g/dL RDW 12.5 (11.5-15.5) % Plt Count 306 (150-450) k/uL Neutrophils % 57 % Lymphocytes % 31 % Monocytes % 6 % Eosinophils % 2 % Basophils % 3 % Neutrophils # 4.8 (1.3-7.7) k/uL Lymphocytes # 2.6 (1.0-4.8) k/uL Monocytes # 0.5 (0-1.0) k/uL Eosinophils # 0.2 (0-0.7) k/uL Basophils # 0.2 (0-0.2) k/uL Sodium 139 (137-145) mmol/L Potassium 4.6 (3.5-5.1) mmol/L Chloride 104 (98-107) mmol/L Carbon Dioxide 27 (22-30) mmol/L Anion Gap 8 mmol/L BUN 14 (9-20) mg/dL Creatinine 0.72 (0.66-1.25) mg/dL Est GFR (CKD-EPI)AfAm >90 (>60 ml/min/1.73 sqM) Est GFR (CKD-EPI)NonAf >90 (>60 ml/min/1.73 sqM) Glucose 95 (74-99) mg/dL Plasma Lactic Acid Vicente 1.3 (0.7-2.0) mmol/L Calcium 9.6 (8.4-10.2) mg/dL Total Bilirubin 0.6 (0.2-1.3) mg/dL AST 35 (17-59) U/L ALT 40 (4-49) U/L Alkaline Phosphatase 76 (38-126) U/L Total Protein 8.2 (6.3-8.2) g/dL Albumin 4.5 (3.5-5.0) g/dL Amylase 94 (30-110) U/L Lipase 66 (23-300) U/L - Radiology Data Radiology results: report reviewed, image reviewed KUB x-ray was obtained. Report reviewed in its entirety. Impression by Dr. Banegas shows nonacute abdomen. No change. Disposition Clinical Impression: Gastritis, Abdominal pain Disposition: HOME SELF-CARE Condition: Good Instructions (If sedation given, give patient instructions): Gastritis (ED), Diet for Stomach Ulcers and Gastritis (ED), Abdominal Pain (ED) Additional Instructions: Avoid fatty or greasy foods. Take medication as directed. Follow-up with gastroenterology for further evaluation. Follow-up with your primary care physician for recheck in 1-2 days. Return to the emergency department immediately for any new, worsening, or concerning symptoms. Prescriptions: Omeprazole [PriLOSEC] 20 mg PO AC-BRKFST #30 cap Is patient prescribed a controlled substance at d/c from ED?: No Referrals: None,Stated [Primary Care Provider] - 1-2 days Edmundo Kaminski MD [STAFF PHYSICIAN] - 1-2 days Time of Disposition: 02:39
[2019-05-17 02:14] LABS: ALT 40 U/L (4-49); AST 35 U/L (17-59); African American GFR (CKD) >90 (>60 ml/min/1.73 sqM); Albumin 4.5 g/dL (3.5-5.0); Alkaline Phosphatase 76 U/L (38-126); Amylase 94 U/L (30-110); Anion Gap 8 mmol/L; Blood Urea Nitrogen 14 mg/dL (9-20); Calcium 9.6 mg/dL (8.4-10.2); Carbon Dioxide 27 mmol/L (22-30); Chloride 104 mmol/L (98-107); Glucose 95 mg/dL (74-99); Non-African American GFR(CKD) >90 (>60 ml/min/1.73 sqM); Sodium 139 mmol/L (137-145); Total Bilirubin 0.6 mg/dL (0.2-1.3); Total Protein 8.2 g/dL (6.3-8.2)
[2019-05-17 02:24] LABS: Potassium 4.6 mmol/L (3.5-5.1)
[2019-05-17 02:25] LABS: Basophils # (A) 0.2 k/uL (0-0.2); Basophils % (A) 3 %; Eosinophils # (A) 0.2 k/uL (0-0.7); Eosinophils % (A) 2 %; HCT 50.3 % (39.0-53.0); HGB 16.3 gm/dL (13.0-17.5); Lymphocytes # (A) 2.6 k/uL (1.0-4.8); Lymphocytes % (A) 31 %; MCH 26.8 pg (25.0-35.0); MCHC 32.4 g/dL (31.0-37.0); MCV 82.7 fL (80.0-100.0); Mean Platelet Volume 9.1; Monocytes # (A) 0.5 k/uL (0-1.0); Monocytes % (A) 6 %; Neutrophils # (A) 4.8 k/uL (1.3-7.7); Neutrophils % (A) 57 %; Platelet Count 306 k/uL (150-450); RBC 6.08 m/uL (4.30-5.90); RDW 12.5 % (11.5-15.5); WBC 8.5 k/uL (3.8-10.6)
== END 2019-05-17 02:58 | disposition home or self-care (01) ==
LOC: EC 00:36
DX: K29.70 Gastritis, unspecified, without bleeding (principal); F17.200 Nicotine dependence, unspecified, uncomplicated; Z91.048 Other nonmedicinal substance allergy status
CPT/HCPCS: 36415; 80053; 82150; 83605; 83690; 85025; 74018; 99284; 96374; 96375 ×2; 96361; J2405; J1170